=== PATIENT | female | born 1955 | race Caucasian/White ===

== ENCOUNTER 2020-05-07 17:08 | Emergency (ER) | payer BC, SELFPAY ==
[2020-05-07 17:10] VITALS: BP 206/103; PULSE 113; RESP 18; TEMP 36.7; O2SAT 97; BMI 25.7
--- NOTE | 2020-05-07 17:36 | ECG_ITS ---
APPROVED REPORT Exam: Resting ECG HR:100 bpm ECG Measurements Heart Rate 100 AXES ME 208 P 49 QRSd 72 QRS 64 QT 340 T 44 QTc 438 Conclusion Normal sinus rhythm Normal ECG Electronically signed by : Jose Roger, 05/08/2020 21:08:52
--- NOTE | 2020-05-07 17:36 | HMH.EDGENADL ---
ED Disposition Clinical Impression: Community acquired pneumonia Qualifiers: Laterality: right Lung location: lower lobe of lung Qualified Code(s): J18.9 - Pneumonia, unspecified organism Hypertension Qualifiers: Hypertension type: unspecified Qualified Code(s): I10 - Essential (primary) hypertension Disposition: Home, Self-Care Condition on Discharge: Good Instructions: DI for Pneumonia -- Adult, DI for High Blood Pressure Prescriptions: Azithromycin [Z-Star 250mg Tab*] 250 mg PO UD DOSE PK #6 tab Prescription Printed Referrals: Jose Roger MD [Primary Care Provider] - 3 days - Critical Care Critical Care Time: No Attestation: On , the high probability of a clinically significant, sudden or life threatening deterioration of the following system(s) required my full and direct attention, intervention and personal management. The time I documented below is in addition to time spent performing reported procedures but includes the following listed in this critical care notation. Medical Decision Making - Medical Records Medical records reviewed: Yes: I reviewed the patient's medical records. - Andrzej Inquiry Pt receiving controlled substance: No Vital Signs: 05/07/20 17:10 05/07/20 17:40 Temperature 98.0 F Temperature Source Oral Pulse Rate [Left Radial] 113 H 101 H Respiratory Rate 18 18 Blood Pressure [Left Arm] 206/103 H 174/98 H Blood Pressure Mean [Left Arm] 137 123 Blood Pressure Source [Left Arm] Automatic Cuff Automatic Cuff Blood Pressure Position [Left Arm] Sitting Supine 02 Sat by Pulse Oximetry 97 95 Oxygen Delivery Method Room Air Room Air - Lab Data Lab results reviewed: Yes: I reviewed the patient's lab results. Lab Results 05/07/20 17:26: WBC 6.8, RBC 5.06, Hgb 16.7 H, Hct 48.3 H, MCV 95.3, MCH 33.0 H, MCHC 34.6, RDW 13.0, Plt Count 298, MPV 8.0, Neut % (Auto) 68.6, Lymph % (Auto) 23.4, Pre[place] % (Auto) 4.1, Eos % (Auto) 3.3, Baso % (Auto) 0.6, Neut # (Auto) 4.7, Lymph # (Auto) 1.6, Preble # (Auto) 0.3, Eos # (Auto) 0.2, Baso # (Auto) 0.0 05/07/20 17:26: Sodium 142, Potassium 3.9, Chloride 105, Carbon Dioxide 28, Anion Gap 12.9, BUN 18 H, Creatinine 0.70, Estimated Creat Clear 65, Estimated GFR 85, Est GFR ( Amer) 103, Glucose 132 H, Calcium 9.8, Troponin I < 0.01 Result diagrams: 05/07/20 17:26 05/07/20 17:26 Orders (Tests/Meds): ORDERS Category Date Time Status Chest XR -- portable [XR chest portable] Stat Exams 05/07/20 17:49 Taken Covid-19 IgG/IgM ([facility]) Routine Lab 05/07/20 18:30 Ordered Covid-19 Nasal PCR ([facility]) Routine Lab 05/07/20 18:15 Ordered Troponin I Q3H Lab 05/07/20 20:45 Ordered Troponin I Q3H Lab 05/07/20 23:45 Ordered - Radiology Data #1 Image(s): Chest Image Reviewed: Yes I reviewed the patient's radiology image Right lower lobe infiltrate concerning for pneumonia - ECG Data Tracing #1 EKG at 1733 shows a sinus rhythm with a rate of 100. No acute ST segment elevation or depression. No hyperacute T waves. Normal intervals. EKG interpreted by me. Medical Decision Narrative: Patient's blood pressure has spontaneously resolved to 140 systolic. She is symptom-free currently. Chest x-ray is concerning for possible right lower lobe infiltrate, will place on Z-Star. She has no leukocytosis, fever or hypoxia. Covid swab sent. No significant metabolic derangement, troponin negative and EKG with no signs of acute ischemia. Advise follow-up with primary care provider concerning routine preventative health care, follow-up chest x-ray and for management of potential high blood pressure. Discharged home. General Adult HPI - General Stated complaint: High BP, weakness Time Seen by Provider: 05/07/20 17:36 Mode of Arrival: Ambulatory Source of Information: Patient Limitations: No Limitations - History of Present Illness HPI narrative: This is a 64-year-old female with no known significant past medical history who presen
[2020-05-07 17:40] VITALS: BP 174/98; PULSE 101; RESP 18; O2SAT 95
--- NOTE | 2020-05-07 17:49 | XR_ITS ---
PROCEDURE: XR CHEST PORTABLE CLINICAL HISTORY: HTN Hypertension COMPARISON: No exams were available for comparison FINDINGS: Borderline cardiomegaly without failure. The lungs are clear without infiltrates, suspicious nodules, or pleural effusions. No acute bony abnormalities. IMPRESSION: Borderline cardiomegaly otherwise negative Dictated by: John Carrera MD 05/08/2020 06:04 John Carrera MD in [facility] 05/08/2020 06:04
[2020-05-07 18:05] LABS: Chloride 105 mmol/L (98-107); Potassium 3.9 mmoL/L (3.5-5.1); Sodium 142 mmol/L (136-145)
[2020-05-07 18:08] LABS: Anion Gap 12.9 mEq/L (5-15); Blood Urea Nitrogen 18 mg/dl (7-17); Calcium 9.8 mg/dl (8.4-10.2); Carbon Dioxide 28 mmol/L (22.0-30.0); Creatinine Clearance Estimated 65 mL/min (50-200); Estimated Glomerular Filt Rate 85 ml/min (>60); GFR (African American) 103 ML/MIN (>60); Glucose 132 mg/dl (74-100)
--- NOTE | 2020-05-07 18:30 | PC.NURSE ---
SWAB SENT TO LAB
[2020-05-07 18:47] LABS: Troponin I < 0.01 ng/ml (0.00-0.034)
[2020-05-07 18:52] LABS: Basophils % 0.6 % (0.1-2.0); Eosinophils # 0.2 K/mm3 (0.0-0.4); Eosinophils % 3.3 % (0.1-12.0); Hematocrit 48.3 % (37.0-47.0); Hemoglobin 16.7 g/dL (12.2-16.2); Lymphocytes # 1.6 K/mm3 (0.7-4.5); Lymphocytes % 23.4 % (10-50); Mean Corpuscular HGB Conc 34.6 g/dL (31.8-35.4); Mean Corpuscular Volume 95.3 fl (81-99); Monocytes # 0.3 K/mm3 (0.1-1.0); Monocytes % 4.1 % (1.7-9.3); Neutrophils # 4.7 K/mm3 (1.8-7.8); Neutrophils % 68.6 % (37.0-80.0); Platelet Count 298 K/mm3 (142-424); Red Blood Count 5.06 M/mm3 (4.20-5.40); White Blood Count 6.8 K/mm3 (4.8-10.8)
[2020-05-07 19:23] VITALS: BP 121/70; PULSE 85; RESP 15; TEMP 36.7; O2SAT 97
[2020-05-07 19:25] LABS: Coronavirus 19 IgG Antibody Negative (Negative); Coronavirus 19 IgM Antibody Negative (Negative)
== END 2020-05-07 19:24 | disposition home or self-care (01) ==
PROVIDERS: Emergency Provider Emergency Medicine; PCP Internal Medicine Adolescent Medicine
DX: J18.9 Pneumonia, unspecified organism (principal); Z01.84 Encounter for antibody response examination; Z11.52 Encounter for screening for COVID-19; I10 Essential (primary) hypertension
CPT/HCPCS: 71045; 80048; 84484; 85025; 86328; 93005; 99283; U0003

== ENCOUNTER → 2022-06-23 09:31 | Outpatient (CLI) | payer MEDICARE, OTHER, SELFPAY ==
--- NOTE | 2022-06-23 09:38 | MM_ITS ---
PROCEDURE INFORMATION: Exam: MG Bilateral Screening 3D Mammography Exam date and time: 06/23/2022 9:53 AM Age: 67 years old Clinical indication: Screening examination TECHNIQUE: Imaging protocol: Bilateral Screening tomosynthesis and 2D mammography including computer-aided detection (CAD) when performed. COMPARISON: No relevant prior studies available. FINDINGS: MAMMOGRAPHY: Breast composition: There are scattered areas of fibroglandular density. Mass: Questionable 1.5 cm mass in the middle third of the left 12 o'clock axis Architectural distortion: None. Calcifications: No suspicious calcifications. Asymmetric density: None. Skin thickening: None. Axillary adenopathy: None. IMPRESSION: Patient to be recalled for spot compression views of the left breast in the CC and MLO projections, a full 90 degree lateral view, and left breast ultrasound for further evaluation of a left breast mass. ASSESSMENT: BI-RADS Category 0: Incomplete- Need Additional Imaging Evaluation and/or Prior Mammograms for Comparison
== END ==
PROVIDERS: PCP Family Medicine; Visit Provider Nurse Practitioner Family
DX: Z12.31 Encounter for screening mammogram for malignant neoplasm of breast (principal)
CPT/HCPCS: 77063; 77067

== ENCOUNTER → 2022-07-15 13:34 | Outpatient (CLI) | payer MEDICARE, OTHER, SELFPAY ==
--- NOTE | 2022-07-15 13:41 | US_ITS ---
PROCEDURE INFORMATION: Exam: US Left Breast, Complete MG Left Diagnostic Breast Tomosynthesis Exam date and time: 07/15/2022 3:04 PM Age: 67 years old Clinical indication: Callback for additional assessment of a questionable 1.5 cm mass in the middle 3rd left 12 o'clock breast identified on screening mammogram 06/23/2022 TECHNIQUE: Imaging protocol: Complete ultrasound of all four quadrants of the left breast and the retroareolar regions, including ultrasound of the axilla when performed. Left Diagnostic tomosynthesis and 2D mammography including computer-aided detection (CAD) when performed. Unilateral or bilateral exam. COMPARISON: MG MM DIG MAMM DX UNILAT LT CAD 07/15/2022 1:40 PM FINDINGS: MAMMOGRAPHY: Spot compression views demonstrate a persistent low-density oblong appearing 0.7 x 1.3 by 1.3 cm asymmetric density within the 12 o'clock left middle 1/3. No distinct margins are present, without evidence of architectural distortion or suspicious calcifications. I suspect this reflects an island of fibroglandular tissue. ULTRASOUND: Complete ultrasound of all 4 quadrants, axilla and retroareolar breast No suspicious solid or cystic mass is present. No benign-appearing solid or cystic mass is present. No architectural distortion or shadowing is present. No axillary adenopathy is present. IMPRESSION: Probably benign. Six-month follow-up left diagnostic mammogram is recommended to assure stability of what I suspect to reflect a sonographically occult benign island of asymmetric fibroglandular tissue ASSESSMENT: BI-RADS category 3: Probably benign
== END ==
PROVIDERS: PCP Family Medicine; Visit Provider Nurse Practitioner Family
DX: R92.8 Other abnormal and inconclusive findings on diagnostic imaging of breast (principal)
CPT/HCPCS: 76641; 77061; 77065; G0279

== ENCOUNTER 2024-11-03 07:41 | Outpatient (CLI) | payer MEDICARE, OTHER, SELFPAY ==
--- OUTSIDE RECORDS SUMMARY | 2024-11-03 07:44 | XMS_ITS ---
Author Organization Unknown [facility] Start Date Provider Encounter for Check-up [id number] [facility]
--- NOTE | 2024-11-03 07:46 | MM_ITS ---
PROCEDURE INFORMATION: Exam: MG Bilateral Screening 3D Mammography Exam date and time: 11/03/2024 8:24 AM Age: 69 years old Clinical indication: Screening examination TECHNIQUE: Imaging protocol: Bilateral Screening tomosynthesis and 2D mammography including computer-aided detection (CAD) when performed. COMPARISON: 1. MG MM DIG MAMM DX UNILAT LT CAD 07/15/2022 1:40 PM 2. MG MM DIG SCREENING MAMM BI W/CAD 06/23/2022 9:53 AM FINDINGS: MAMMOGRAPHY: Breast composition: There are scattered areas of fibroglandular density. Mass: None. Architectural distortion: None. Calcifications: No suspicious calcifications. Asymmetric density: None. Skin thickening: None. Axillary adenopathy: None. IMPRESSION: No mammographic evidence of malignancy. Annual screening is recommended unless otherwise clinically indicated. ASSESSMENT: BI-RADS Category 1: Negative.
== END 2024-11-03 23:59 | disposition home or self-care (01) ==
LOC: RAD 07:43
PROVIDERS: PCP Nurse Practitioner Family; Visit Provider Nurse Practitioner Family
DX: Z12.31 Encounter for screening mammogram for malignant neoplasm of breast (principal); R92.321 Mammographic fibroglandular density, right breast; R92.322 Mammographic fibroglandular density, left breast
CPT/HCPCS: 77063; 77067